=== PATIENT | female | born 1970 | race Caucasian/White ===

== ENCOUNTER 2017-04-28 14:08 | Emergency (ER) | payer OTHER ==
[2017-04-28 14:16] VITALS: BP 131/85; PULSE 85; TEMP 98.4; BMI 33.3
--- NOTE | 2017-04-28 14:17 | PDOC ---
Rapid Medical Evaluation Time Seen by Provider: 04/28/17 14:12 Medical Evaluation: Allergies Allergy/AdvReac Type Severity Reaction Status Date / Time No Known Allergies Allergy Verified 01/12/16 09:02 04/28/17 14:15 The patient presents with a chief complaint of: Chest pain for one hour. Pt. states that the pain is worse when she takes a deep breath or moves a certain way. Denies fevers, chills, n/v, recent illness I have performed a brief in-person evaluation of this patient; Pertinent physical exam findings: TTP under L breast. RRR, CTAB I have ordered the following: CBC, CMP, PT/INR, Cardaic profile, EKG, CXR The patient will proceed to the ED for further evaluation. Discharge Disposition - Referrals Referrals: Man Renee MD [Primary Care Provider] - - Patient Instructions - Post Discharge Activity
--- NOTE | 2017-04-28 14:38 | EKG ---
Test Reason : Blood Pressure : / mmHG Vent. Rate : 075 BPM Atrial Rate : 075 BPM P-R Int : 144 ms QRS Dur : 090 ms QT Int : 406 ms P-R-T Axes : 028 019 019 degrees QTc Int : 453 ms NORMAL SINUS RHYTHM NORMAL ECG WHEN COMPARED WITH ECG OF 12-JAN-2016 09:01, NO SIGNIFICANT CHANGE WAS FOUND Confirmed by Prince Graham MD ([id number]) on 04/28/2017 2:38:06 PM Referred By: Confirmed By:Prince Graham MD
--- NOTE | 2017-04-28 15:13 | PDOC ---
History of Present Illness - General Chief Complaint: Chest Pain Stated Complaint: CHEST PAIN Time Seen by Provider: 04/28/17 14:12 - History of Present Illness Initial Comments: 04/28/17 15:13 Ms. Macias is a 47 yo female w/ pmh of HLD and anemia who presents c/o a 2 hour history of left sided chest pain she reports started "out of nowhere" earlier today. She reports she was at work and sitting down when the pain started. She was not focused on anything specific at the time and reports she was "just doing work." She complains of taking deep breaths and that this increases the pain. She further reports it hurts when she presses on her left breast. Of note she reports she flew back from [facility] on Thursday (2 days ago ). She has felt fine however until today. The patient denies headache and dizziness. Denies fever, chills, nausea, vomit, diarrhea and constipation. Denies dysuria, frequency, urgency and hematuria. Allergies: NKDA Past History - Past Medical History Allergies/Adverse Reactions: Allergies Allergy/AdvReac Type Severity Reaction Status Date / Time No Known Allergies Allergy Verified 04/28/17 14:13 Home Medications: Ambulatory Orders NK [No Known Home Medication] 04/28/17 COPD: No - Surgical History Cholecystectomy: Yes - Immunization History Immunization Up to Date: Yes - Suicide/Smoking/Psychosocial Hx Smoking Status: No Smoking History: Never smoked Have you smoked in the past 12 months: No Number of Cigarettes Smoked Daily: 0 Hx Alcohol Use: No Drug/Substance Use Hx: No Substance Use Type: None Hx Substance Use Treatment: No Review of Systems - Review of Systems Comments:: 04/28/17 15:18 GENERAL/CONSTITUTIONAL: No fever or chills. No weakness. HEAD, EYES, EARS, NOSE AND THROAT: No change in vision. No ear pain or discharge. No sore throat. CARDIOVASCULAR: +Chest pain with deep breaths as described RESPIRATORY: No cough, wheezing, or hemoptysis. GASTROINTESTINAL: No nausea, vomiting, diarrhea or constipation. GENITOURINARY: No dysuria, frequency, or change in urination. MUSCULOSKELETAL: No joint or muscle swelling or pain. No neck or back pain. SKIN: No rash NEUROLOGIC: No headache, vertigo, loss of consciousness, or change in strength/ sensation. ENDOCRINE: No increased thirst. No abnormal weight change HEMATOLOGIC/LYMPHATIC: No anemia, easy bleeding, or history of blood clots. ALLERGIC/IMMUNOLOGIC: No hives or skin allergy. *Physical Exam - Vital Signs Last Vital Signs Temp Pulse Resp BP Pulse Ox 98.4 F 85 20 131/85 100 04/28/17 14:13 04/28/17 14:13 04/28/17 14:13 04/28/17 14:13 04/28/17 14:13 - Physical Exam Comments: 04/28/17 15:19 GENERAL: Awake, alert, and fully oriented, in no acute distress HEAD: No signs of trauma, normocephalic, atraumatic EYES: PERRLA, EOMI, sclera anicteric, conjunctiva clear ENT: Auricles normal inspection, hearing grossly normal, nares patent, oropharynx clear without exudates. Moist mucosa NECK: Normal ROM, supple, no lymphadenopathy, JVD, or masses LUNGS: No distress, speaks full sentences, clear to auscultation bilaterally HEART: +Reproducible chest pain on palpation of left chest. Regular rate and rhythm, normal S1 and S2, no murmurs, rubs or gallops, peripheral pulses normal and equal bilaterally. ABDOMEN: Soft, nontender, normoactive bowel sounds. No guarding, no rebound. No masses EXTREMITIES: Normal inspection, Normal range of motion, no edema. No clubbing or cyanosis. NEUROLOGICAL: Cranial nerves II through XII grossly intact. Normal speech, normal gait, no focal sensorimotor deficits SKIN: Warm, Dry, normal turgor, no rashes or lesions noted. ED Treatment Course - LABORATORY CBC & Chemistry Diagram: 04/28/17 14:47 04/28/17 14:47 Medical Decision Making - Medical Decision Making 04/28/17 15:20 Ms. Macias is a 47 yo female w/ pmh of anemia and HLD who presents w/ symptoms of acute chest pain. She has previously presented for this approximately 1 year ago and was diagnosed with atypical chest pain. Cardiac workup begun to r/o acute process. Patient non-concerning for PE with 0 risk factors under PERC criteria. 04/28/17 19:33 2nd troponin negative. HEART score +3. Patient low risk. Patient also reporting resolution of symptoms and would like to return home. Will discharge with instructions to follow-up with PCP within 1-2 days. Patient verbalized understanding and will comply. 04/28/17 19:37 *DC/Admit/Observation/Transfer Diagnosis at time of Disposition: Costochondral chest pain - Discharge Dispostion Disposition: HOME - Referrals Referrals: Man Renee MD [Primary Care Provider] - - Patient Instructions Printed Discharge Instructions: DI for Atypical Chest Pain Additional Instructions: Please return if any increase or return of pain, fever, or other concerning symptoms. Follow-up with your primary care provider within 1-2 days. - Post Discharge Activity
[2017-04-28 15:17] LABS: BASO % 0.6 % (0-2.0); EOS % 2.2 % (0-4.5); HEMATOCRIT 35.3 % (32.4-45.2); HEMOGLOBIN 11.8 GM/dL (10.7-15.3); LYMPH % 43.8 % (8-40); MCH 29.5 pg (25.7-33.7); MCHC 33.5 g/dl (32.0-36.0); MEAN PLT VOLUME 11.2 fl (7.5-11.1); NEUT % 46.4 % (42.8-82.8); PLATELET COUNT 211 K/MM3 (134-434); RBC 4.01 M/mm3 (3.60-5.2); RDW 13.1 % (11.6-15.6); WHITE BLOOD COUNT 6.2 K/mm3 (4.0-10.0)
[2017-04-28 15:35] LABS: INR 0.96 (0.82-1.09); PROTHROMBIN TIME (PATIENT) 10.8 SEC (9.98-11.88)
[2017-04-28 16:02] LABS: ALBUMIN 3.5 g/dl (3.4-5.0); ANION GAP 9 (8-16); BILIRUBIN,TOTAL 0.5 mg/dL (0.2-1.0); BLOOD UREA NITROGEN 12 mg/dL (7-18); CALCIUM 8.8 mg/dL (8.5-10.1); CHLORIDE 106 mmol/L (98-107); CO2 25 mmol/L (21-32); CREATININE 0.6 mg/dL (0.55-1.02); GLUCOSE,RANDOM 97 mg/dL (74-106); MAGNESIUM 2.2 mg/dL (1.8-2.4); SGOT/AST 26 U/L (15-37); SGPT/ALT 45 U/L (12-78); SODIUM 140 mmol/L (136-145); TOT PROT 6.9 g/dl (6.4-8.2)
[2017-04-28 16:03] LABS: ALK PHOS 102 U/L (45-117)
[2017-04-28] MEDS ORDERED: KETOROLAC TROMETHAMINE 15 MG/ML VIAL IVPUSH ONE (17:04)
[2017-04-28] MEDS ORDERED: RANITIDINE HCL 150 MG TABLET (FP) ONE (17:12)
[2017-04-28] MEDS ORDERED: MAG HYDROX/AL HYDROX/SIMETH 30 ML UNIT-DOSE CUP ONE (17:12)
[2017-04-28] MEDS ORDERED: KETOROLAC TROMETHAMINE 30 MG/1 ML VIAL ONE (17:12)
[2017-04-28] MEDS ORDERED: MAG HYDROX/AL HYDROX/SIMETH 30 ML UNIT-DOSE CUP PO ONE (17:14)
[2017-04-28] MEDS ORDERED: RANITIDINE HCL 150 MG TABLET (FP) PO ONE (17:14)
[2017-04-28] MEDS ORDERED: FAMOTIDINE IV 20 MG/12 ML VIAL IVPB ONE (17:15)
--- NOTE | 2017-04-28 19:22 | PDOC ---
Attending Attestation - Resident Resident Name: Mathieu Domingo - ED Attending Attestation I have performed the following: I have examined & evaluated the patient, The case was reviewed & discussed with the resident, I agree w/resident's findings & plan, Exceptions are as noted - HPI HPI: 04/28/17 19:25 Patient is a 47 year old female with a significant past medical history of HTN, HLD, anemia who presents to the ED with complaints of left sided chest pain 2 hours prior to ED arrival. Patient reports being at work, when she began experiencing sudden onset of left sided chest pain just lateral to her L lower sternum. She reports chest pain is localized and does not increase with exertion. Pain does not radiate. Paula reports pain is much worse with inspiration and with twisting of her body. She states that she went to the gym for the first time in a while yesterday and was pulling with her arms on the stair master. Patient reports return from [facility] 1 day ago. Reports she walked a few times on the plane. As per patient's son, patient was active vegetarian until recent vacation where she ate multiple meals with meat. Upon my evaluation, the pt reports the pain has completely resolved (she has received toradol, pepcid, and maalox). Denies SOB. Denies calf swelling or edema. Denies fevers, chills, diaphoresis. Denies contact with sick individuals. Denies constipation, diarrhea. Denies focal weakness/numbness. Allergies: None Social history: Lives with family. No smoking. No alcohol (Drank 1 beer during vacation last week). No illicit drugs. Surgical history: cholecystectomy PMD: Dr. Man Renee - Physicial Exam PE: 04/28/17 19:29 GENERAL: Awake, alert, and fully oriented, in no acute distress HEAD: No signs of trauma EYES: PERRLA, EOMI, sclera anicteric, conjunctiva clear ENT: Auricles normal inspection, hearing grossly normal, nares patent, oropharynx clear without exudates. Moist mucosa NECK: Normal ROM, supple, no lymphadenopathy, JVD, or masses LUNGS: Breath sounds equal, clear to auscultation bilaterally. No wheezes, and no crackles HEART: Regular rate and rhythm, normal S1 and S2, no murmurs, rubs or gallops. No reproducible ttp. ABDOMEN: Soft, nontender, normoactive bowel sounds. No guarding, no rebound. No masses EXTREMITIES: Normal range of motion, no edema. No clubbing or cyanosis. No cords, erythema, or tenderness NEUROLOGICAL: Normal speech, cranial nerves intact, negative pronator drift, 5/ 5 strength in all 4 extremities, normal sensation to light touch in all 4 extremities, normal cerebellar exam, normal gait, normal reflexes and tone SKIN: Warm, Dry, normal turgor, no rashes or lesions noted. - Medical Decision Making 04/28/17 19:00 47-year-old female with a history of hypertension, hyperlipidemia presents with pleuritic left sided chest pain that has now resolved. Vitals are unremarkable. Exam is unremarkable. EKG is nonischemic. Patient's heart score is 3 for age and risk factors, will check 2 troponins. She does not meet any perc criteria and thus unlikely PE. Given recent strenuous physical activity, and initial report of reproducibility of pain by the patient, and resolution of pain after Toradol, pain is likely musculoskeletal. 04/28/17 19:38 Second troponin is negative. Patient continues to be asymptomatic and requests discharge home. Patient's primary doctor is Dr. Renee, I advised her to follow up with him within 2-3 days for referral to cardiology. I discussed the physical exam findings, ancillary test results and final diagnoses with the patient. I answered all of the patient's questions. The patient was satisfied with the care received and felt comfortable with the discharge plan and treatment plan. The patient will call their primary care physician within 24 hours to arrange follow-up and will return to the Emergency Department with any new, persistent or worsening symptoms. Heart Score/ECG Review - History History: Slightly suspicious - Electrocardiogram EKG: Normal - Age Age: 45-65 - Risk Factors Risk Factors Heart Score: Yes Hx Hypercholesterolemia, Yes Hx Hypertension, Yes Hx Obesity Based on the list above the patient has:: >/=3 risk factors or Hx atherosclerotic disease - Troponin Troponin: </= normal limit - Score Heart Score - Total: 3 #1 04/28/17 19:24 Twelve-lead EKG was performed and reviewed by me. Normal sinus rhythm, rate 75. Normal axis and intervals. No ST elevations
== END 2017-04-28 21:08 | disposition home or self-care (01) ==
LOC: JER 14:08
PROC: 3E0333Z Introduction of Anti-inflammatory into Peripheral Vein, Percutaneous Approach (ICD-10-PCS; principal; 2017-04-28)
DX: M94.0 Chondrocostal junction syndrome [Tietze] (principal)
CPT/HCPCS: 36415; 71046-TC; 80053; 82550; 83735; 84484; 84703; 85025; 85610; 93005; 93010; 99285-25

== ENCOUNTER 2017-08-05 23:52 | Emergency (ER) | payer OTHER ==
[2017-08-06 00:55] VITALS: BP 124/83; PULSE 66; TEMP 97.7; BMI 33.3
[2017-08-06] MEDS ORDERED: ASPIRIN 81 MG CHEWABLE TABLETS PO ONE (01:04)
--- NOTE | 2017-08-06 01:04 | PDOC ---
History of Present Illness - General History Source: Patient Exam Limitations: No Limitations - History of Present Illness Initial Comments: 08/06/17 01:42 The patient is a 47-year-old female, with a significant past medical history of HTN and hypercholesterolemia, who presents to the ED with a pressure-like sensation throughout her chest. The patient states that she has issues with her blood pressure but she is on no medications because she wants to do things naturally. Prior to presentation, the pressure worsened; on exam she rates the pressure a 5/10 in sensation. The patient denies any fever, chills, nausea, vomiting, diarrhea, or abdominal pain. Denies any shortness of breath or diaphoresis. Allergy: NKA Family History: diabetes <Amira Wilhelm - Last Filed: 08/06/17 01:46> - General History Source: Patient <Addis Abrahaman - Last Filed: 08/06/17 02:21> - General Chief Complaint: Chest Pain Stated Complaint: CHEST PAIN Time Seen by Provider: 08/06/17 00:48 Past History <Amira Wilhelm - Last Filed: 08/06/17 01:46> - Past Medical History COPD: No HTN: Yes Hypercholesterolemia: Yes - Surgical History Cholecystectomy: Yes - Immunization History Immunization Up to Date: Yes - Suicide/Smoking/Psychosocial Hx Smoking Status: No Smoking History: Never smoked Have you smoked in the past 12 months: No Number of Cigarettes Smoked Daily: 0 Information on smoking cessation initiated: No Hx Alcohol Use: No Drug/Substance Use Hx: No Substance Use Type: None Hx Substance Use Treatment: No <Luis Abraham - Last Filed: 08/06/17 02:21> - Past Medical History Allergies/Adverse Reactions: Allergies Allergy/AdvReac Type Severity Reaction Status Date / Time No Known Allergies Allergy Verified 04/28/17 14:13 Home Medications: Ambulatory Orders NK [No Known Home Medication] 04/28/17 Review of Systems - Review of Systems Able to Perform ROS?: Yes Comments:: 08/06/17 01:44 CONSTITUTIONAL: Absent: fever, chills, diaphoresis, generalized weakness, malaise, loss of appetite HEENT: Absent: rhinorrhea, nasal congestion, throat pain, throat swelling, difficulty swallowing, mouth swelling, ear pain, eye pain, visual Changes CARDIOVASCULAR: Present: (+)chest pressure Absent: syncope, palpitations, irregular heart rate, lightheadedness, peripheral edema RESPIRATORY: Absent: cough, shortness of breath, dyspnea with exertion, orthopnea, wheezing, stridor, hemoptysis GASTROINTESTINAL: Absent: abdominal pain, abdominal distension, nausea, vomiting, diarrhea, constipation, melena, hematochezia GENITOURINARY: Absent: dysuria, frequency, urgency, hesitancy, hematuria, flank pain, genital pain MUSCULOSKELETAL: Absent: myalgia, arthralgia, joint swelling SKIN: Absent: rash, itching, pallor HEMATOLOGIC/IMMUNOLOGIC: Absent: easy bleeding, easy bruising, lymphadenopathy, frequent infections ENDOCRINE: Absent: unexplained weight gain, unexplained weight loss, heat intolerance, cold intolerance NEUROLOGIC: Absent: headache, focal weakness or paresthesias, dizziness, unsteady gait, seizure, mental status changes, bladder or bowel incontinence PSYCHIATRIC: Absent: anxiety, depression, suicidal or homicidal ideation, hallucinations. <Amira Wilhelm - Last Filed: 08/06/17 01:46> *Physical Exam - Vital Signs Last Vital Signs Temp Pulse Resp BP Pulse Ox 97.7 F 66 18 124/83 100 08/06/17 00:50 08/06/17 00:50 08/06/17 00:50 08/06/17 00:50 08/06/17 00:50 - Physical Exam Comments: 08/06/17 01:45 GENERAL: Well developed, well nourished. Awake and alert. No acute distress. HEENT: Normocephalic, atraumatic. PERRLA, EOMI. No conjunctival pallor. Sclera are non- icteric. Moist mucous membranes. Oropharynx is clear. NECK: Supple. Full ROM. No JVD. Carotid pulses 2+ and symmetric, without bruits. No thyromegaly. No lymphadenopathy. CARDIOVASCULAR: Regular rate and rhythm. No murmurs, rubs, or gallops. Distal pulses are 2+ and symmetric. PULMONARY: No evidence of respiratory distress. Lungs clear to auscultation bilaterally. No wheezing, rales or rhonchi. ABDOMINAL: Soft. Non-tender. Non-distended. No rebound or guarding. No organomegaly. Normoactive bowel sounds. MUSCULOSKELETAL Normal range of motion at all joints. No bony deformities or tenderness. No CVA tenderness. EXTREMITIES: No cyanosis. No clubbing. No edema. No calf tenderness. SKIN: Warm and dry. Normal capillary refill. No rashes. No jaundice. NEUROLOGICAL: Alert, awake, appropriate. PSYCHIATRIC: Cooperative. Good eye contact. Appropriate mood and affect. <Amira Wilhelm - Last Filed: 08/06/17 01:46> - Vital Signs Last Vital Signs Temp Pulse Resp BP Pulse Ox 97.7 F 66 18 124/83 100 08/06/17 00:50 08/06/17 00:50 08/06/17 00:50 08/06/17 00:50 08/06/17 00:50 <Luis Abraham - Last Filed: 08/06/17 02:21> Heart Score/ECG Review - ECG Intrepretation Comment:: 08/06/17 01:46 EKG was reviewed by Dr. Abraham at 23:57. Impression: Normal sinus rhythm at 66 bpm. Possible inferior infarct, age undetermined <Amira Wilhelm - Last Filed: 08/06/17 01:46> ED Treatment Course - LABORATORY CBC & Chemistry Diagram: 08/06/17 01:15 08/06/17 01:15 - ADDITIONAL ORDERS Additional order review: 08/06/17 01:15 RBC 4.33 MCV 87.3 MCHC 34.0 RDW 13.7 MPV 10.7 Neutrophils % 39.3 L Lymphocytes % 48.7 H Monocytes % 9.5 Eosinophils % 1.9 Basophils % 0.6 - Medications Given in the ED: ED Medications Discontinued Medications Generic Name Dose Route Start Last Admin Trade Name Freq PRN Reason Stop Dose Admin Aspirin 324 mg 08/06/17 01:04 08/06/17 01:11 Asa - PO 08/06/17 01:05 324 mg ONCE ONE Administration <Amira Wilhelm - Last Filed: 08/06/17 01:46> - LABORATORY CBC & Chemistry Diagram: 08/06/17 01:15 08/06/17 01:15 <Luis Abraham - Last Filed: 08/06/17 02:21> Medical Decision Making - Medical Decision Making 08/06/17 02:18 Dr. Abraham: The scribe's documentation has been prepared under my direction and personally reviewed by me in its entirery. I confirm that the note above accurately reflects all work, treatment, procedures, and medical decision making performed by me. <Luis Abraham - Last Filed: 08/06/17 02:21> *DC/Admit/Observation/Transfer - Attestations Scribe Attestion: 08/06/17 01:46 Documentation prepared by Amira Wilhelm, acting as medical housekeeper for Luis Abraham MD. <Amira Wilhelm - Last Filed: 08/06/17 01:46> - Discharge Dispostion Admit: No <Luis Abraham - Last Filed: 08/06/17 02:21> Diagnosis at time of Disposition: Chest pain Qualifiers: Chest pain type: unspecified Qualified Code(s): R07.9 - Chest pain, unspecified - Discharge Dispostion Disposition: HOME Condition at time of disposition: Stable - Referrals Referrals: ON STAFF,NOT [Primary Care Provider] - Elvia Helton MD [Staff Physician] - Prince Graham MD [Staff Physician] - - Patient Instructions Printed Discharge Instructions: DI for Chest Pain Additional Instructions: Purchase and take an 81mg Aspirin daily. Follow up with your primary care and have bood pressure and symptoms re-evaluated Print Language: GERMAN - Post Discharge Activity
[2017-08-06] MEDS ORDERED: ASPIRIN 81 MG CHEWABLE TABLETS ONE (01:09)
[2017-08-06 01:24] LABS: BASO % 0.6 % (0-2.0); WHITE BLOOD COUNT 6.1 K/mm3 (4.0-10.0)
[2017-08-06 01:26] LABS: EOS % 1.9 % (0-4.5); HEMATOCRIT 37.8 % (32.4-45.2); HEMOGLOBIN 12.8 GM/dL (10.7-15.3); LYMPH % 48.7 % (8-40); MCH 29.6 pg (25.7-33.7); MEAN CELL VOLUME 87.3 fl (80-96); MEAN PLT VOLUME 10.7 fl (7.5-11.1); MONO % 9.5 % (3.8-10.2); NEUT % 39.3 % (42.8-82.8); PLATELET COUNT 184 K/MM3 (134-434); RBC 4.33 M/mm3 (3.60-5.2); RDW 13.7 % (11.6-15.6)
[2017-08-06 01:43] LABS: INR 0.94 (0.82-1.09); PROTHROMBIN TIME (PATIENT) 10.6 SEC (9.98-11.88)
[2017-08-06 01:53] LABS: ALBUMIN 3.9 g/dl (3.4-5.0); ANION GAP 9 (8-16); BILIRUBIN,TOTAL 0.5 mg/dL (0.2-1.0); BLOOD UREA NITROGEN 15 mg/dL (7-18); CALCIUM 9.4 mg/dL (8.5-10.1); CHLORIDE 103 mmol/L (98-107); CO2 26 mmol/L (21-32); CREATININE 0.7 mg/dL (0.55-1.02); GLUCOSE,RANDOM 97 mg/dL (74-106); LIPASE 149 U/L (73-393); MAGNESIUM 2.5 mg/dL (1.8-2.4); POTASSIUM 4.1 mmol/L (3.5-5.1); SGOT/AST 27 U/L (15-37); SGPT/ALT 43 U/L (12-78); SODIUM 138 mmol/L (136-145); TOT PROT 7.7 g/dl (6.4-8.2)
[2017-08-06 01:55] LABS: ALK PHOS 98 U/L (45-117)
--- NOTE | 2017-08-06 11:22 | EKG ---
Test Reason : Blood Pressure : / mmHG Vent. Rate : 066 BPM Atrial Rate : 066 BPM P-R Int : 156 ms QRS Dur : 090 ms QT Int : 428 ms P-R-T Axes : 036 000 026 degrees QTc Int : 448 ms NORMAL SINUS RHYTHM POSSIBLE INFERIOR INFARCT , AGE UNDETERMINED ABNORMAL ECG WHEN COMPARED WITH ECG OF 28-APR-2017 14:19, NO SIGNIFICANT CHANGE WAS FOUND Confirmed by VEGA PEARSON MD ([id number]) on 08/06/2017 11:21:45 AM Referred By: Confirmed By:VEGA PEARSON MD
== END 2017-08-06 02:29 | disposition home or self-care (01) ==
LOC: SUPCPDRO 23:52 → JER 23:52
DX: R07.9 Chest pain, unspecified (principal); I10 Essential (primary) hypertension; E78.00 Pure hypercholesterolemia, unspecified
CPT/HCPCS: 36415; 80053; 82550; 83690; 83735; 84484; 85025; 85610; 93005; 93010; 99282-25

== ENCOUNTER 2024-02-19 09:22 | Emergency (ER) | payer BC, OTHER ==
[2024-02-19 09:34] VITALS: BP 149/88; PULSE 72; RESP 16; TEMP 97.9; BMI 36.6
[2024-02-19] MEDS: ACETAMINOPHEN 325 MG TABLET (FP) PO ONE (10:40)
[2024-02-19] MEDS ORDERED: ACETAMINOPHEN 325 MG TABLET (FP) ONE (10:44)
[2024-02-19 11:46] LABS: BASO % 0.5 % (0-2.0); EOS % 1.9 % (0-4.5); HEMATOCRIT 40.4 % (32.4-45.2); HEMOGLOBIN 13.5 GM/dL (10.7-15.3); LYMPH % 50.9 % (8-40); MCH 29.1 pg (25.7-33.7); MCHC 33.5 g/dl (32.0-36.0); MEAN CELL VOLUME 86.9 fl (80-96); MEAN PLT VOLUME 10.5 fl (7.5-11.1); NEUT % 38.7 % (42.8-82.8); PLATELET COUNT 188 10^3/uL (134-434); RBC 4.65 M/mm3 (3.60-5.2); WHITE BLOOD COUNT 5.5 K/mm3 (4.0-10.0)
[2024-02-19 12:05] LABS: POTASSIUM 4.1 mmol/L (3.5-5.1)
[2024-02-19 12:08] LABS: CALCIUM 10.2 mg/dL (8.5-10.1)
[2024-02-19 12:09] LABS: ALBUMIN 4.3 g/dl (3.4-5.0); BLOOD UREA NITROGEN 10.3 mg/dL (7-18)
[2024-02-19 12:12] LABS: CREATININE 0.6 mg/dL (0.55-1.3)
[2024-02-19 12:14] LABS: BILIRUBIN,TOTAL 0.9 mg/dL (0.2-1); TOT PROT 7.6 g/dl (6.4-8.2)
[2024-02-19 13:23] LABS: HIV INTERPRETATION NEGATIVE (NEGATIVE)
== END 2024-02-19 13:11 | disposition home or self-care (01) ==
LOC: JER 09:22
DX: R07.89 Other chest pain (principal); M79.632 Pain in left forearm; R20.2 Paresthesia of skin
CPT/HCPCS: 36415; 71046-TC-FY; 80053; 84484; 85025; 86803; 87389; 93005; 93010; 99285-25